=== PATIENT | male | born 1985 | race Caucasian/White ===

== ENCOUNTER 2018-08-28 02:35 | Emergency (ER) | payer OTHER, SELFPAY ==
[2018-08-28] MEDS ORDERED: HYDROcodone/Acetaminophen 10/325 mg Tablet ONE (03:05)
[2018-08-28] MEDS ORDERED: Azithromycin 250 MG TAB ONE (03:05)
== END 2018-08-28 03:14 | disposition home or self-care (01) ==
LOC: MADERS 02:35
DX: L66.3 Perifolliculitis capitis abscedens (principal); J45.909 Unspecified asthma, uncomplicated; F41.9 Anxiety disorder, unspecified
CPT/HCPCS: 99282

== ENCOUNTER 2018-08-31 18:52 | Emergency (ER) | payer SELFPAY ==
[2018-08-31] MEDS ORDERED: Mupirocin 2% Ointment 22 GM Tube ONE (19:09)
[2018-08-31] MEDS ORDERED: HYDROcodone/Acetaminophen 10/325 mg Tablet ONE (19:13)
[2018-08-31] MEDS ORDERED: Clindamycin 150 MG CAP ONE (19:14)
[2018-08-31] MEDS ORDERED: Naproxen 500 MG TAB ONE (19:14)
== END 2018-08-31 19:42 | disposition home or self-care (01) ==
LOC: MADERS 18:52
DX: L73.9 Follicular disorder, unspecified (principal); J45.909 Unspecified asthma, uncomplicated; F32.9 Major depressive disorder, single episode, unspecified; F41.9 Anxiety disorder, unspecified; Z79.899 Other long term (current) drug therapy
CPT/HCPCS: 99283

== ENCOUNTER 2019-01-06 07:17 | Emergency (ER) | payer OTHER, SELFPAY ==
[2019-01-06] MEDS ORDERED: Benzonatate 100 MG CAP ONE (08:34)
[2019-01-06] MEDS ORDERED: Azithromycin 250 MG TAB ONE (08:34)
[2019-01-06] MEDS ORDERED: Dexamethasone 4 MG TAB ONE (08:34)
== END 2019-01-06 09:10 | disposition home or self-care (01) ==
LOC: MADERS 07:17
DX: J18.9 Pneumonia, unspecified organism (principal); J45.901 Unspecified asthma with (acute) exacerbation; J04.10 Acute tracheitis without obstruction; F41.9 Anxiety disorder, unspecified; F32.9 Major depressive disorder, single episode, unspecified; Z79.51 Long term (current) use of inhaled steroids; Z79.899 Other long term (current) drug therapy; Z79.82 Long term (current) use of aspirin
CPT/HCPCS: 87081; 87430; 87804; J7620; J8540

== ENCOUNTER 2019-02-05 16:40 | Emergency (ER) | payer OTHER | END 2019-02-05 17:56 | disposition home or self-care (01) | LOC: MADERS 16:40 | DX: R11.2 Nausea with vomiting, unspecified (principal); R19.7 Diarrhea, unspecified; J45.909 Unspecified asthma, uncomplicated; F32.9 Major depressive disorder, single episode, unspecified; F41.9 Anxiety disorder, unspecified; Z79.899 Other long term (current) drug therapy; Z79.82 Long term (current) use of aspirin | CPT/HCPCS: 87804; 99283 ==

== ENCOUNTER 2019-04-19 19:17 | Emergency (ER) | payer MEDICARE, OTHER ==
[2019-04-19] MEDS ORDERED: Acetaminophen 500 MG TAB ONE (19:37)
[2019-04-19] MEDS ORDERED: Azithromycin 250 MG TAB ONE (19:37)
== END 2019-04-19 19:54 | disposition home or self-care (01) ==
LOC: MADERS 19:17
DX: L73.9 Follicular disorder, unspecified (principal); F32.9 Major depressive disorder, single episode, unspecified; F41.9 Anxiety disorder, unspecified; J45.909 Unspecified asthma, uncomplicated; Z79.51 Long term (current) use of inhaled steroids; Z79.82 Long term (current) use of aspirin; Z79.899 Other long term (current) drug therapy
CPT/HCPCS: 99283

== ENCOUNTER 2019-04-21 13:25 | Emergency (ER) | payer MEDICARE, OTHER ==
[2019-04-21] MEDS ORDERED: Bupivacaine PF 0.5% 30 ML VIAL ONE (15:53)
== END 2019-04-21 16:54 | disposition home or self-care (01) ==
LOC: MADERS 13:25
DX: L02.811 Cutaneous abscess of head [any part, except face] (principal); J44.9 Chronic obstructive pulmonary disease, unspecified; F32.9 Major depressive disorder, single episode, unspecified; F41.9 Anxiety disorder, unspecified; Z79.899 Other long term (current) drug therapy
CPT/HCPCS: 10060; S0020

== ENCOUNTER 2020-02-11 12:35 | Emergency (ER) | payer MEDICARE, OTHER ==
[2020-02-11] MEDS ORDERED: Clindamycin 150 MG CAP ONE (12:52)
== END 2020-02-11 12:54 | disposition home or self-care (01) ==
LOC: MADERS 12:35
DX: H00.035 Abscess of left lower eyelid (principal); F32.9 Major depressive disorder, single episode, unspecified; F41.9 Anxiety disorder, unspecified; J44.9 Chronic obstructive pulmonary disease, unspecified; Z79.82 Long term (current) use of aspirin; Z79.899 Other long term (current) drug therapy
CPT/HCPCS: 67700

== ENCOUNTER 2020-02-19 11:32 | Emergency (ER) | payer MEDICARE, OTHER | END 2020-02-19 13:17 | disposition home or self-care (01) | LOC: MADERS 11:32 | DX: T15.01XA Foreign body in cornea, right eye, initial encounter (principal); H10.503 Unspecified blepharoconjunctivitis, bilateral; J44.9 Chronic obstructive pulmonary disease, unspecified; H00.016 Hordeolum externum left eye, unspecified eyelid; F32.9 Major depressive disorder, single episode, unspecified; F41.9 Anxiety disorder, unspecified; Z79.82 Long term (current) use of aspirin; Z79.899 Other long term (current) drug therapy | CPT/HCPCS: 65222 ==

== ENCOUNTER 2020-02-29 10:33 | Emergency (ER) | payer MEDICARE, OTHER ==
[2020-02-29] MEDS ORDERED: Lidocaine 1% w/Epinephrine 1:100K 20 ML VIAL ONE (10:50)
== END 2020-02-29 11:14 | disposition home or self-care (01) ==
LOC: MADERS 10:33
DX: L02.811 Cutaneous abscess of head [any part, except face] (principal); I10 Essential (primary) hypertension; J44.9 Chronic obstructive pulmonary disease, unspecified; J45.909 Unspecified asthma, uncomplicated; F32.9 Major depressive disorder, single episode, unspecified; F41.9 Anxiety disorder, unspecified
CPT/HCPCS: 10060; 87070; 87077; 87186; 87205

== ENCOUNTER 2020-04-24 17:32 | Emergency (ER) | payer MEDICARE, OTHER | END 2020-04-24 18:33 | disposition home or self-care (01) | LOC: MADERS 17:32 | DX: L02.811 Cutaneous abscess of head [any part, except face] (principal); I10 Essential (primary) hypertension; J44.9 Chronic obstructive pulmonary disease, unspecified; J45.909 Unspecified asthma, uncomplicated; F32.9 Major depressive disorder, single episode, unspecified; F41.9 Anxiety disorder, unspecified; G89.29 Other chronic pain; Z79.82 Long term (current) use of aspirin; Z79.899 Other long term (current) drug therapy | CPT/HCPCS: 99282 ==

== ENCOUNTER 2020-05-27 08:16 | Emergency (ER) | payer MEDICARE, MEDICAID | END 2020-05-27 09:45 | disposition home or self-care (01) | LOC: MADER/OP 08:16 → MADERS 08:16 → MADER/OP 09:45 | DX: H61.22 Impacted cerumen, left ear (principal); J44.9 Chronic obstructive pulmonary disease, unspecified; Z79.899 Other long term (current) drug therapy | CPT/HCPCS: 99282 ==

== ENCOUNTER 2020-06-02 14:34 | Emergency (ER) | payer MEDICARE, MEDICAID ==
[2020-06-02] MEDS ORDERED: Lidocaine 1% w/Epinephrine 1:100K 20 ML VIAL ONE (15:12)
[2020-06-02] MEDS ORDERED: Doxycycline 100 MG CAP ONE (15:44)
[2020-06-02] MEDS ORDERED: D5 1/2 NS w/20 mEq KCL 0 ML ONE (15:44)
[2020-06-02] MEDS ORDERED: Morphine 4 MG/ML VIAL ONE (15:44)
[2020-06-02] MEDS ORDERED: Doxycycline Hyclate 100 MG VIAL ONE (15:44)
== END 2020-06-02 16:25 | disposition home or self-care (01) ==
LOC: MADERS 14:34
DX: L02.411 Cutaneous abscess of right axilla (principal); L03.111 Cellulitis of right axilla; I10 Essential (primary) hypertension; J44.9 Chronic obstructive pulmonary disease, unspecified; F32.9 Major depressive disorder, single episode, unspecified; F41.9 Anxiety disorder, unspecified
CPT/HCPCS: 10061; 96372; J2270; J3480

== ENCOUNTER 2020-10-16 07:35 | Emergency (ER) | payer MEDICARE, OTHER ==
[2020-10-16] MEDS ORDERED: Doxycycline 100 MG CAP ONE (08:40)
[2020-10-16] MEDS ORDERED: D5 1/2 NS w/20 mEq KCL 0 ML ONE (08:40)
== END 2020-10-16 08:50 | disposition home or self-care (01) ==
LOC: MADERS 07:35
DX: L02.413 Cutaneous abscess of right upper limb (principal); J86.9 Pyothorax without fistula; L02.416 Cutaneous abscess of left lower limb; F41.9 Anxiety disorder, unspecified; F32.9 Major depressive disorder, single episode, unspecified; J44.9 Chronic obstructive pulmonary disease, unspecified
CPT/HCPCS: 99282; J3480

== ENCOUNTER 2020-10-18 17:38 | Emergency (ER) | payer MEDICARE, MEDICAID | END 2020-10-18 18:15 | disposition left against medical advice (07) | LOC: MADERS 17:38 | DX: Z53.21 Procedure and treatment not carried out due to patient leaving prior to being seen by health care provider (principal) ==

== ENCOUNTER 2020-11-08 16:14 | Outpatient (CLI) | payer MEDICARE, MEDICAID ==
[2020-11-08 16:46] LABS: Bilirubin Negative (Negative); Blood, Urine Negative (Negative); Clarity Clear (Clear); Glucose, Urine (Dipstick) Negative (Negative); Ketone, Urine Negative (Negative); Leukocyte Negative (Negative); Nitrite Negative (Negative); Protein, Urine (Dipstick) Negative (Neg-Trace); Specific Gravity, Urine 1.025 (1.005-1.030); Urobilinogen 0.2 mg/dL (Less than 2)
[2020-11-08 17:12] LABS: Bacteria/HPF Rare-Few HPF (None Seen); RBC/HPF 0-3 HPF (0-3); Squamous Epithelial 0-3 HPF (0-3); WBC/HPF 0-3 HPF (0-3)
== END 2020-11-08 16:15 | disposition home or self-care (01) ==
LOC: MADLAB 16:14
PROVIDERS: ATTEND Family Medicine
DX: R30.0 Dysuria (principal)
CPT/HCPCS: 81001; 87086

== ENCOUNTER 2020-11-25 19:54 | Emergency (ER) | payer MEDICARE, OTHER | END 2020-11-25 20:28 | disposition home or self-care (01) | LOC: MADERS 19:54 | DX: R59.0 Localized enlarged lymph nodes (principal); L08.9 Local infection of the skin and subcutaneous tissue, unspecified; S00.01XA Abrasion of scalp, initial encounter; R00.0 Tachycardia, unspecified; J44.9 Chronic obstructive pulmonary disease, unspecified; Z79.82 Long term (current) use of aspirin; Z79.899 Other long term (current) drug therapy; X58.XXXA Exposure to other specified factors, initial encounter | CPT/HCPCS: 99282 ==

== ENCOUNTER 2020-12-10 07:12 | Emergency (ER) | payer MEDICARE, OTHER ==
[2020-12-10] MEDS ORDERED: Prochlorperazine 10 MG/2 ML VIAL ONE (08:04)
== END 2020-12-10 08:20 | disposition home or self-care (01) ==
LOC: MADERS 07:12
DX: K52.9 Noninfective gastroenteritis and colitis, unspecified (principal); J44.9 Chronic obstructive pulmonary disease, unspecified; Z79.82 Long term (current) use of aspirin; Z79.899 Other long term (current) drug therapy
CPT/HCPCS: 96372; 99283; J0780

== ENCOUNTER 2020-12-12 19:42 | Emergency (ER) | payer MEDICARE, OTHER | END 2020-12-12 20:30 | disposition left against medical advice (07) | LOC: MADERS 19:42 | DX: Z53.21 Procedure and treatment not carried out due to patient leaving prior to being seen by health care provider (principal) ==

== ENCOUNTER 2021-05-18 20:04 | Emergency (ER) | payer MEDICARE, MEDICAID ==
[2021-05-18] MEDS ORDERED: Tetracaine 0.5% PF 4 ML BOT ONE (21:00)
[2021-05-18] MEDS ORDERED: Fluorescein Opthalmic Strip ONE (21:00)
[2021-05-18] MEDS ORDERED: Erythromycin Base 0.5% Ophth Oint 3.5 gm Tube ONE (21:16)
== END 2021-05-18 21:31 | disposition home or self-care (01) ==
LOC: MADERS 20:04
DX: H10.31 Unspecified acute conjunctivitis, right eye (principal); K21.9 Gastro-esophageal reflux disease without esophagitis; J44.9 Chronic obstructive pulmonary disease, unspecified; Z79.82 Long term (current) use of aspirin; Z79.899 Other long term (current) drug therapy
CPT/HCPCS: 99283

== ENCOUNTER 2021-09-03 14:05 | Emergency (ER) | payer MEDICARE, MEDICAID | END 2021-09-03 14:45 | disposition home or self-care (01) | LOC: MADERS 14:05 | DX: E86.0 Dehydration (principal); K21.9 Gastro-esophageal reflux disease without esophagitis; J44.9 Chronic obstructive pulmonary disease, unspecified | CPT/HCPCS: 99283 ==

== ENCOUNTER 2022-02-16 20:09 | Emergency (ER) | payer MEDICARE, OTHER | END 2022-02-16 21:54 | disposition home or self-care (01) | LOC: MADERS 20:09 | DX: R42 Dizziness and giddiness (principal); R51.9 Headache, unspecified; R25.1 Tremor, unspecified; K21.9 Gastro-esophageal reflux disease without esophagitis; Z79.899 Other long term (current) drug therapy; J44.9 Chronic obstructive pulmonary disease, unspecified; Z79.82 Long term (current) use of aspirin | CPT/HCPCS: 99283 ==

== ENCOUNTER 2023-04-03 07:10 | Emergency (ER) | payer MEDICARE, OTHER ==
[2023-04-03] MEDS ORDERED: Clindamycin 150 MG CAP ONE (07:33)
[2023-04-03] MEDS ORDERED: Doxycycline 100 MG CAP ONE (07:33)
== END 2023-04-03 07:39 | disposition home or self-care (01) ==
LOC: MADERS 07:10
DX: K12.2 Cellulitis and abscess of mouth (principal); K21.9 Gastro-esophageal reflux disease without esophagitis; J44.9 Chronic obstructive pulmonary disease, unspecified; Z79.899 Other long term (current) drug therapy; Z79.82 Long term (current) use of aspirin
CPT/HCPCS: 99282

== ENCOUNTER 2023-04-04 12:58 | Emergency (ER) | payer MEDICARE, OTHER | END 2023-04-04 13:42 | disposition home or self-care (01) | LOC: MADERS 12:58 | DX: L03.211 Cellulitis of face (principal); J44.9 Chronic obstructive pulmonary disease, unspecified | CPT/HCPCS: 99283 ==

== ENCOUNTER 2023-06-08 10:53 | Emergency (ER) | payer MEDICARE, OTHER | END 2023-06-08 11:53 | disposition home or self-care (01) | LOC: MADERS 10:53 | DX: S00.86XA Insect bite (nonvenomous) of other part of head, initial encounter (principal); K21.9 Gastro-esophageal reflux disease without esophagitis; W57.XXXA Bitten or stung by nonvenomous insect and other nonvenomous arthropods, initial encounter | CPT/HCPCS: 99283 ==

== ENCOUNTER 2023-06-10 18:31 | Emergency (ER) | payer MEDICARE, OTHER ==
[2023-06-10] MEDS ORDERED: predniSONE 20 MG TAB ONE (19:12)
== END 2023-06-10 19:20 | disposition home or self-care (01) ==
LOC: MADERS 18:31
DX: T78.40XA Allergy, unspecified, initial encounter (principal); L03.90 Cellulitis, unspecified; K21.9 Gastro-esophageal reflux disease without esophagitis; J44.9 Chronic obstructive pulmonary disease, unspecified; Z79.82 Long term (current) use of aspirin; Z79.899 Other long term (current) drug therapy
CPT/HCPCS: 99282; J7512

== ENCOUNTER 2024-02-02 12:33 | Emergency (ER) | payer MEDICARE, OTHER | END 2024-02-02 13:34 | disposition home or self-care (01) | LOC: MADERS 12:33 | DX: S50.11XA Contusion of right forearm, initial encounter (principal); J44.9 Chronic obstructive pulmonary disease, unspecified; Z79.82 Long term (current) use of aspirin; W26.9XXA Contact with unspecified sharp object(s), initial encounter ==

== ENCOUNTER 2024-05-01 17:13 | Emergency (ER) | payer MEDICAID, MEDICARE | END 2024-05-01 17:49 | disposition home or self-care (01) | LOC: MADERS 17:13 | DX: S13.4XXA Sprain of ligaments of cervical spine, initial encounter (principal); K21.9 Gastro-esophageal reflux disease without esophagitis; Z79.82 Long term (current) use of aspirin; W07.XXXA Fall from chair, initial encounter | CPT/HCPCS: 99283 ==

== ENCOUNTER 2024-06-10 15:08 | Outpatient (CLI) | payer MEDICARE, MEDICAID | END 2024-06-10 15:09 | disposition home or self-care (01) | LOC: MADLAB 15:08 | PROVIDERS: ATTEND Family Medicine | DX: S69.91XA Unspecified injury of right wrist, hand and finger(s), initial encounter (principal); S62.396A Other fracture of fifth metacarpal bone, right hand, initial encounter for closed fracture ==

== ENCOUNTER 2025-04-15 13:40 | Outpatient (CLI) | payer MEDICARE, MEDICAID | END 2025-04-15 13:41 | disposition home or self-care (01) | LOC: MADLAB 13:40 | PROVIDERS: ATTEND Family Medicine | DX: M43.06 Spondylolysis, lumbar region (principal); M43.04 Spondylolysis, thoracic region; M43.02 Spondylolysis, cervical region; M47.812 Spondylosis without myelopathy or radiculopathy, cervical region | CPT/HCPCS: 72040; 72072; 72100 ==

== ENCOUNTER 2025-06-26 14:32 | Emergency (ER) | payer MEDICARE, MEDICAID ==
[2025-06-26] MEDS ORDERED: Ibuprofen 800 MG TAB ONE (15:59)
== END 2025-06-26 16:19 | disposition home or self-care (01) ==
LOC: MADERS 14:32
DX: M79.671 Pain in right foot (principal); J44.9 Chronic obstructive pulmonary disease, unspecified; K21.9 Gastro-esophageal reflux disease without esophagitis; Z79.82 Long term (current) use of aspirin; Z79.899 Other long term (current) drug therapy; X50.1XXA Overexertion from prolonged static or awkward postures, initial encounter; Y93.H2 Activity, gardening and landscaping
CPT/HCPCS: 99283

== ENCOUNTER 2025-08-29 13:18 | Emergency (ER) | payer MEDICARE | END 2025-08-29 14:00 | disposition home or self-care (01) | LOC: MADERS 13:18 | DX: H10.9 Unspecified conjunctivitis (principal); J44.9 Chronic obstructive pulmonary disease, unspecified | CPT/HCPCS: 99282 ==